=== PATIENT | male | born 2000 | race Caucasian/White ===

== ENCOUNTER 2022-12-24 20:01 | Emergency (ER) | payer OTHER ==
[~2022-12-24] VITALS: Ht 162.6 cm; Wt 127.0 kg
[2022-12-24] MEDS ORDERED: SODIUM CHLORIDE 0.9% 1,000 ML IV ONE (23:00)
[2022-12-24 23:07] LABS: BASOPHILS % (AUTO) 0.8 % (0.0-2.0); EOSINOPHILS % (AUTO) 1.2 % (1.0-6.0); HEMOGLOBIN 14.7 g/dL (13.5-17.5); LYMPHOCYTES # (AUTO) 1.9 K/uL (1.0-4.8); LYMPHOCYTES % (AUTO) 23.2 % (22.0-44.0); MEAN CORPUSCULAR HGB CONC 32.7 G/dL (31.0-37.0); MEAN CORPUSCULAR VOLUME 86 fL (80-100); MONOCYTES # (AUTO) 0.4 K/uL (0.1-1.0); MONOCYTES % (AUTO) 4.9 % (2.0-9.0); NEUTROPHILS # (AUTO) 5.6 K/uL (1.8-7.7); NEUTROPHILS % (AUTO) 69.9 % (40.0-70.0); PLATELET COUNT (AUTO) 319 K/uL (150-450); RED BLOOD CELL COUNT(AUTO) 5.26 MIL/uL (4.50-5.90); RED CELL DISTRIBUTION WIDTH 14.4 % (11.5-14.5)
[2022-12-24 23:44] LABS: LACTIC ACID 1.8 mmol/L (0.4-2.0)
[2022-12-24 23:55] LABS: ANION GAP 7 mmol/L (8-16); CARBON DIOXIDE 29 mmol/L (22-29); CHLORIDE 100 mmol/L (98-107); GLUCOSE,RANDOM 172 mg/dL (70-110); POTASSIUM 3.6 mmol/L (3.5-5.1); SODIUM SERUM 136 mmol/L (136-145); UREA NITROGEN, BLOOD 7 mg/dL (7-18)
[2022-12-25] LABS: GLOMERULAR FILTR. RATE CALC > 60 mL/min (>60)
[2022-12-25 00:01] LABS: ALANINE AMINOTRANSFERASE 60 U/L (12-78); ALBUMIN 3.4 g/dL (3.4-5.0); ALKALINE PHOSPHATASE 143 U/L (46-116); ASPARTATE AMINOTRANSFERASE 37 U/L (15-37); BILIRUBIN,TOTAL 0.2 mg/dL (0.1-1.0); TOTAL PROTEIN, SERUM 8.3 g/dL (6.4-8.2)
[2022-12-25 00:08] VITALS: BP 119/84
[2022-12-25] MEDS ORDERED: CEPH-558 PO (00:16)
[2022-12-25] MEDS ORDERED: MUPI15CR12 TP (00:16)
== END 2022-12-25 01:25 | disposition home or self-care (01) ==
LOC: EMS 20:07
DX: L03.221 Cellulitis of neck (principal); F17.210 Nicotine dependence, cigarettes, uncomplicated
CPT/HCPCS: 99284; 96360; 80053; 83605; 85025; 36415; J7030

== ENCOUNTER 2023-09-14 12:26 | Inpatient (IN) | payer MEDICAID, OTHER ==
[~2023-09-14] VITALS: Ht 167.6 cm; Wt 114.7 kg
[~2023-09-14 12:26] MED LIST: CEPH-558 PO; MUPI15CR12 TP
[2023-09-14] MEDS ORDERED: OLAN10TA74 PO (12:53)
[2023-09-14] MEDS ORDERED: HALO5TAB2 PO (12:53)
[2023-09-14] MEDS ORDERED: LORazepam 2 MG/ML VIAL IM ONE (13:00)
[2023-09-14] MEDS ORDERED: HALOPERIDOL LACTATE 5 MG/ML VIAL IM ONE (13:00)
[2023-09-14 13:33] LABS: COVID AG,FIA SOURCE NASAL SWAB
[2023-09-14 13:59] LABS: SARS-COV2 (COVID) ANTIGEN,FIA Negative (Negative)
[2023-09-14 14:00] LABS: BASOPHILS % (AUTO) 0.8 % (0.0-2.0); EOSINOPHILS % (AUTO) 0.4 % (1.0-6.0); HEMATOCRIT 43.1 % (41-53); HEMOGLOBIN 14.3 g/dL (13.5-17.5); LYMPHOCYTES % (AUTO) 12.1 % (22.0-44.0); MEAN CORPUSCULAR HEMOGLOBIN 28.4 pg (26.0-34.0); MEAN CORPUSCULAR HGB CONC 33.2 G/dL (31.0-37.0); MEAN CORPUSCULAR VOLUME 85 fL (80-100); MONOCYTES # (AUTO) 0.4 K/uL (0.1-1.0); NEUTROPHILS # (AUTO) 6.6 K/uL (1.8-7.7); NEUTROPHILS % (AUTO) 81.7 % (40.0-70.0); PLATELET COUNT (AUTO) 278 K/uL (150-450); RED BLOOD CELL COUNT(AUTO) 5.05 MIL/uL (4.50-5.90); RED CELL DISTRIBUTION WIDTH 15.7 % (11.5-14.5); WHITE BLOOD COUNT (AUTO) 8.1 K/uL (4.5-11.0)
[2023-09-14 14:09] LABS: ANION GAP 11 mmol/L (8-16); CALCIUM, TOTAL 9.7 mg/dL (8.8-10.5); CARBON DIOXIDE 26 mmol/L (22-29); CHLORIDE 101 mmol/L (98-107); CREATININE 0.68 mg/dL (0.60-1.30); GLOMERULAR FILTR. RATE CALC > 60 mL/min (>60); GLUCOSE,RANDOM 102 mg/dL (70-110); POTASSIUM 3.6 mmol/L (3.5-5.1); SODIUM SERUM 138 mmol/L (136-145); UREA NITROGEN, BLOOD 7 mg/dL (7-18)
[2023-09-14 14:15] LABS: ALANINE AMINOTRANSFERASE 52 U/L (12-78); ALBUMIN 3.5 g/dL (3.4-5.0); ALKALINE PHOSPHATASE 110 U/L (46-116); ASPARTATE AMINOTRANSFERASE 40 U/L (15-37); BILIRUBIN,TOTAL 0.3 mg/dL (0.1-1.0); TOTAL PROTEIN, SERUM 7.9 g/dL (6.4-8.2)
[2023-09-14 14:16] LABS: ALCOHOL, BLOOD (SERUM) < 3 mg/dL (0-10)
[2023-09-14] MEDS ORDERED: ZOLPIDEM TARTRATE 10 MG TABLET PO PRN (14:30)
[2023-09-15 06:15] LABS: APPEARANCE,URINE HAZY (CLEAR); BILIRUBIN,URINE NEGATIVE (NEGATIVE); COLOR,URINE YELLOW (YELLOW); GLUCOSE, URINE (UA) NEGATIVE (NEGATIVE); KETONES,URINE TRACE mg/dL (NEGATIVE); LEUKOCYTE ESTERASE ,URINE NEGATIVE (NEGATIVE); NITRATE,URINE NEGATIVE (NEGATIVE); OCCULT BLOOD,URINE TRACE (NEGATIVE); PH,URINE 5.5 (5.0-8.0); PROTEIN,URINE 30-70 mg/dL (NEGATIVE); SPECIFIC GRAVITIY, URINE 1.025 (1.003-1.030); UROBILINOGEN,URINE <=1.0 mg/dL (<=1.0)
[2023-09-15 06:20] LABS: PH,URINE DRUG SCREEN 5.5 (5.0-8.0)
[2023-09-15 06:21] LABS: ALCOHOL, URINE DRUG SCREEN NEGATIVE (NEGATIVE); AMPHET/METH SCREEN,URINE NEGATIVE (NEGATIVE); BARBITURATE SCREEN, URINE NEGATIVE (NEGATIVE); BENZODIAZEPINES SCREEN,URINE NEGATIVE (NEGATIVE); CANNABINOID SCREEN,URINE NEGATIVE (NEGATIVE); COCAINE SCREEN,URINE NEGATIVE (NEGATIVE); METHADONE SCREEN, URINE NEGATIVE (NEGATIVE); OPIATE SCREEN,URINE NEGATIVE (NEGATIVE); PHENCYCLIDINE SCREEN,URINE NEGATIVE (NEGATIVE)
[2023-09-15 06:23] LABS: BACTERIA,URINE None Seen /HPF (None Seen); MUCUS,URINE Moderate LPF (None Seen); RBC,URINE 0-2 /HPF (0-2); SQUAMOUS EPITHELIAL CELL,UR Few /LPF (None Seen); WBC,URINE 0-2 /HPF (0-5)
[2023-09-15] MEDS: HALOPERIDOL 5 MG TABLET PO PRN ×2 (08:04→13:56)
[2023-09-15] MEDS: LORazepam 2 MG TABLET PO PRN ×2 (08:04→13:56)
[2023-09-15 14:19] VITALS: BP 145/98; PULSE 70; RESP 18; TEMP 97.3; O2SAT 100
[2023-09-15] MEDS ORDERED: PNEUMOCOCCAL VACCINE POLYVALENT 0.5 ML SYRINGE [PPSV23] IM. ONE (14:45)
[2023-09-15] MEDS ORDERED: NICOTINE 14 MG/24 HOUR PATCH TD PRN (15:15)
[2023-09-15] MEDS ORDERED: IBUPROFEN 400 MG TABLET PO PRN (15:15)
[2023-09-15] MEDS ORDERED: ALBUTEROL SULFATE HFA 90 MCG/PUFF 8 GM INHALER IH PRN (15:15)
[2023-09-15] MEDS ORDERED: GuaiFENesin/D-METHORPHAN [SUGAR-FREE] 200-20MG/10 ML SYRUP UDCUP PO PRN (15:15)
[2023-09-15] MEDS ORDERED: MAGNESIUM HYDROXIDE SUSPENSION 30 ML UDCUP PO PRN (15:15)
[2023-09-15] MEDS ORDERED: ACETAMINOPHEN 325 MG TABLET PO PRN (15:15)
[2023-09-15] MEDS ORDERED: DOCUSATE SODIUM 100 MG CAPSULE PO PRN (15:15)
[2023-09-15] MEDS ORDERED: MAG HYDROX/ALUMINUM HYD/SIMETH ES 30 ML SUSPENSION UDCUP PO PRN (15:15)
[2023-09-15] MEDS ORDERED: PETROLATUM,WHITE 28 GM JELLY TP PRN (15:15)
[2023-09-15] MEDS ORDERED: CloNIDine HCL 0.1 MG TABLET PO PRN (15:15)
[2023-09-15] MEDS ORDERED: ONDANSETRON HCL 4 MG TABLET PO PRN (15:15)
[2023-09-15] MEDS ORDERED: LOPERAMIDE HCL 2 MG CAPSULE PO PRN (15:15)
[2023-09-15 21:51] VITALS: BP 139/94; PULSE 75; RESP 18; TEMP 97.6
[2023-09-16 08:37] LABS: CHOL/HDL RATIO 5.8 (4.2-7.3); THYROID STIMULATING HORMONE 1.43 uIU/mL (0.36-3.74)
[2023-09-16] MEDS: HALOPERIDOL 5 MG TABLET PO PRN (08:50)
[2023-09-16] MEDS: LORazepam 2 MG TABLET PO PRN (08:50)
[2023-09-16 13:01] VITALS: BP 122/79; PULSE 116; RESP 19; TEMP 98; O2SAT 95
[2023-09-16 20:03] VITALS: BP 144/81; PULSE 100; RESP 18; TEMP 97.2; O2SAT 94
[2023-09-16] MEDS: HALOPERIDOL 10 MG TABLET PO SCH (20:09)
[2023-09-16] MEDS: BENZTROPINE MESYLATE 2 MG TABLET PO SCH (20:09)
[2023-09-16] MEDS: LITHIUM CARBONATE 300 MG CAPSULE PO SCH (20:09)
[2023-09-16] MEDS: DIVALPROEX SODIUM 500 MG DR TABLET PO SCH (20:15)
[2023-09-17] MEDS: HALOPERIDOL 5 MG TABLET PO PRN (09:00)
[2023-09-17] MEDS: DIVALPROEX SODIUM 500 MG DR TABLET PO SCH ×2 (09:00→20:08)
[2023-09-17] MEDS: LORazepam 2 MG TABLET PO PRN ×2 (09:01→20:58)
[2023-09-17] MEDS: LITHIUM CARBONATE 300 MG CAPSULE PO SCH ×2 (09:01→20:08)
[2023-09-17 09:37] VITALS: BP 120/72; PULSE 94; RESP 16; TEMP 97.2; O2SAT 97
[2023-09-17] MEDS: BENZTROPINE MESYLATE 2 MG TABLET PO SCH (20:08)
[2023-09-17] MEDS: HALOPERIDOL 10 MG TABLET PO SCH (20:08)
[2023-09-17 22:11] VITALS: RESP 18
[2023-09-18] MEDS: LITHIUM CARBONATE 300 MG CAPSULE PO SCH ×2 (09:34→21:49)
[2023-09-18] MEDS: DIVALPROEX SODIUM 500 MG DR TABLET PO SCH ×2 (09:35→21:49)
[2023-09-18 09:36] VITALS: BP 124/69; PULSE 93; RESP 18; TEMP 96.7; O2SAT 94
[2023-09-18] MEDS: LORazepam 2 MG TABLET PO PRN (09:36)
[2023-09-18 21:05] VITALS: BP 110/70; PULSE 82; RESP 18; TEMP 97.8; O2SAT 98
[2023-09-18] MEDS: BENZTROPINE MESYLATE 2 MG TABLET PO SCH (21:49)
[2023-09-18] MEDS: HALOPERIDOL 10 MG TABLET PO SCH (21:49)
[2023-09-19] MEDS: LITHIUM CARBONATE 300 MG CAPSULE PO SCH ×2 (09:21→20:46)
[2023-09-19] MEDS: DIVALPROEX SODIUM 500 MG DR TABLET PO SCH ×2 (09:22→20:46)
[2023-09-19 10:15] VITALS: BP 150/97; PULSE 110; RESP 18; TEMP 96.8; O2SAT 98
[2023-09-19] MEDS: HALOPERIDOL 10 MG TABLET PO SCH (20:46)
[2023-09-19] MEDS: BENZTROPINE MESYLATE 2 MG TABLET PO SCH (20:46)
[2023-09-19 21:18] VITALS: RESP 19
[2023-09-20] MEDS: DIVALPROEX SODIUM 500 MG DR TABLET PO SCH ×2 (08:44→20:51)
[2023-09-20] MEDS: LITHIUM CARBONATE 300 MG CAPSULE PO SCH ×2 (08:44→20:51)
[2023-09-20 10:37] VITALS: BP 131/92; PULSE 120; RESP 16; TEMP 97.3; O2SAT 100
[2023-09-20 20:15] VITALS: BP 134/92; PULSE 98; RESP 16; TEMP 97.8; O2SAT 99
[2023-09-20] MEDS: BENZTROPINE MESYLATE 2 MG TABLET PO SCH (20:51)
[2023-09-20] MEDS: HALOPERIDOL 10 MG TABLET PO SCH (20:51)
[2023-09-21 08:00] VITALS: BP 121/83; PULSE 99; RESP 20; TEMP 97.7
[2023-09-21] MEDS: LORazepam 2 MG TABLET PO PRN (10:16)
[2023-09-21] MEDS: LITHIUM CARBONATE 300 MG CAPSULE PO SCH ×2 (10:16→20:52)
[2023-09-21] MEDS: DIVALPROEX SODIUM 500 MG DR TABLET PO SCH ×2 (10:16→20:52)
[2023-09-21] MEDS: HALOPERIDOL 5 MG TABLET PO PRN (10:17)
[2023-09-21] MEDS: BENZTROPINE MESYLATE 2 MG TABLET PO SCH (20:52)
[2023-09-21] MEDS: HALOPERIDOL 10 MG TABLET PO SCH (20:52)
[2023-09-21 23:19] VITALS: BP 132/71; PULSE 93; RESP 18; TEMP 97.7
[2023-09-22] MEDS: LITHIUM CARBONATE 300 MG CAPSULE PO SCH ×2 (11:09→20:43)
[2023-09-22] MEDS: DIVALPROEX SODIUM 500 MG DR TABLET PO SCH ×2 (11:09→20:43)
[2023-09-22 11:49] VITALS: BP 112/58; PULSE 102; RESP 18; TEMP 97.4; O2SAT 98
[2023-09-22 20:34] VITALS: BP 114/74; PULSE 94; RESP 18; TEMP 97.3; O2SAT 98
[2023-09-22] MEDS: BENZTROPINE MESYLATE 2 MG TABLET PO SCH (20:43)
[2023-09-22] MEDS: HALOPERIDOL 10 MG TABLET PO SCH (20:43)
[2023-09-23] MEDS: DIVALPROEX SODIUM 500 MG DR TABLET PO SCH ×2 (09:23→20:45)
[2023-09-23] MEDS: LITHIUM CARBONATE 300 MG CAPSULE PO SCH ×2 (09:23→20:45)
[2023-09-23] MEDS: HALOPERIDOL 5 MG TABLET PO PRN (09:24)
[2023-09-23 09:45] VITALS: BP 105/84; PULSE 99; RESP 18; TEMP 97.4; O2SAT 97
[2023-09-23 20:32] VITALS: BP 110/72; PULSE 92; RESP 18; TEMP 97.6; O2SAT 97
[2023-09-23] MEDS: HALOPERIDOL 10 MG TABLET PO SCH (20:45)
[2023-09-23] MEDS: BENZTROPINE MESYLATE 2 MG TABLET PO SCH (20:45)
[2023-09-24] MEDS: DIVALPROEX SODIUM 500 MG DR TABLET PO SCH ×2 (08:40→20:44)
[2023-09-24] MEDS: LITHIUM CARBONATE 300 MG CAPSULE PO SCH ×2 (08:40→20:44)
[2023-09-24 08:50] VITALS: BP 124/85; PULSE 99; RESP 18; TEMP 97.7; O2SAT 100
[2023-09-24] MEDS: BENZTROPINE MESYLATE 2 MG TABLET PO SCH (20:44)
[2023-09-24] MEDS: HALOPERIDOL 10 MG TABLET PO SCH (20:44)
[2023-09-24 21:54] VITALS: BP 121/83; PULSE 18; RESP 18; TEMP 97.8
[2023-09-25] MEDS: LITHIUM CARBONATE 300 MG CAPSULE PO SCH ×2 (08:14→20:27)
[2023-09-25] MEDS: DIVALPROEX SODIUM 500 MG DR TABLET PO SCH ×2 (08:14→20:26)
[2023-09-25 09:30] VITALS: BP 135/83; PULSE 86; RESP 17; TEMP 96.8; O2SAT 98
[2023-09-25] MEDS: BENZTROPINE MESYLATE 2 MG TABLET PO SCH (20:26)
[2023-09-25] MEDS: HALOPERIDOL 10 MG TABLET PO SCH (20:28)
[2023-09-25 21:18] VITALS: BP 119/71; PULSE 89; RESP 18; TEMP 97.3
[2023-09-26] MEDS: DIVALPROEX SODIUM 500 MG DR TABLET PO SCH ×2 (08:28→20:27)
[2023-09-26] MEDS: LITHIUM CARBONATE 300 MG CAPSULE PO SCH ×2 (08:28→20:27)
[2023-09-26 13:21] VITALS: BP 130/62; PULSE 90; RESP 18; TEMP 97.2; O2SAT 98
[2023-09-26] MEDS: BENZTROPINE MESYLATE 2 MG TABLET PO SCH (20:27)
[2023-09-26] MEDS: HALOPERIDOL 10 MG TABLET PO SCH (20:27)
[2023-09-26 21:24] VITALS: BP 129/78; PULSE 92; RESP 18; TEMP 97.3; O2SAT 99
[2023-09-27] MEDS: LITHIUM CARBONATE 300 MG CAPSULE PO SCH ×2 (08:00→20:45)
[2023-09-27] MEDS: DIVALPROEX SODIUM 500 MG DR TABLET PO SCH ×2 (08:00→20:45)
[2023-09-27 08:19] VITALS: BP 146/97; PULSE 88; RESP 18; TEMP 97.6; O2SAT 97
[2023-09-27] MEDS: HALOPERIDOL 10 MG TABLET PO SCH (20:45)
[2023-09-27] MEDS: BENZTROPINE MESYLATE 2 MG TABLET PO SCH (20:45)
[2023-09-27 21:30] VITALS: BP 132/69; PULSE 86; RESP 18; TEMP 97.8; O2SAT 98
[2023-09-28 08:00] LABS: LITHIUM 0.59 mmol/L (0.60-1.20)
[2023-09-28 08:13] VITALS: BP 142/90; PULSE 96; RESP 16; TEMP 97.6; O2SAT 97
[2023-09-28] MEDS: LITHIUM CARBONATE 300 MG CAPSULE PO SCH ×2 (08:54→20:43)
[2023-09-28] MEDS: DIVALPROEX SODIUM 500 MG DR TABLET PO SCH ×2 (08:54→20:43)
[2023-09-28 20:38] VITALS: BP 142/74; PULSE 86; RESP 18; TEMP 97.1; O2SAT 98
[2023-09-28] MEDS: HALOPERIDOL 10 MG TABLET PO SCH (20:43)
[2023-09-28] MEDS: BENZTROPINE MESYLATE 2 MG TABLET PO SCH (20:43)
[2023-09-29] MEDS: DIVALPROEX SODIUM 500 MG DR TABLET PO SCH ×2 (08:47→21:12)
[2023-09-29] MEDS: LITHIUM CARBONATE 300 MG CAPSULE PO SCH ×2 (08:47→21:12)
[2023-09-29 09:12] VITALS: BP 127/86; PULSE 85; RESP 18; TEMP 97.4; O2SAT 99
[2023-09-29 20:26] VITALS: BP 124/81; PULSE 87; RESP 18; TEMP 97.3; O2SAT 97
[2023-09-29] MEDS: BENZTROPINE MESYLATE 2 MG TABLET PO SCH (21:12)
[2023-09-29] MEDS: HALOPERIDOL 10 MG TABLET PO SCH (21:12)
[2023-09-30] MEDS: LITHIUM CARBONATE 300 MG CAPSULE PO SCH (08:20)
[2023-09-30] MEDS: DIVALPROEX SODIUM 500 MG DR TABLET PO SCH (08:20)
[2023-09-30] MEDS ORDERED: LITH300C3 PO (16:03)
[2023-09-30] MEDS ORDERED: DIVA500T53 PO (16:03)
[2023-09-30] MEDS ORDERED: HALO10TA21 PO (16:03)
[2023-09-30] MEDS ORDERED: BENZ2TAB71 PO (16:08)
== END 2023-09-30 17:38 | disposition home or self-care (01) | DRG 750 ==
LOC: EMS 12:26 → 3EX 09-15 11:54 → 3EI 09-20 11:27 → 3EC 09-27 05:24
PROVIDERS: ADMIT Psychiatry & Neurology Psychiatry; ATTEND Psychiatry & Neurology Psychiatry
DX: F20.9 Schizophrenia, unspecified (principal); E66.3 Overweight; R73.03 Prediabetes; Z20.822 Contact with and (suspected) exposure to COVID-19; Z68.41 Body mass index [BMI] 40.0-44.9, adult; Z87.891 Personal history of nicotine dependence
CPT/HCPCS: 80053; 80061; 80164; 80178; 80307; 81001; 83036; 84443; 85025; 99285; G0378; G0480; J1630; J2060